=== PATIENT | female | born 1960 ===

== ENCOUNTER 2024-03-31 18:06 | Emergency (ER) | payer SELFPAY ==
[2024-03-31] MEDS: Sodium Chloride 0.9% 10 ML Syringe FLUSH PRN (18:36)
[2024-03-31 18:47] LABS: BASOPHILS PERCENT AUTO 1.6 % (0.0-1.0); EOSINOPHILS PERCENT AUTO 2.8 % (1.0-3.0); LYMPHOCYTES PERCENT AUTO 41.8 % (20.5-50.1); NEUTROPHILS PERCENT AUTO 42.8 % (42.2-75.2); WHITE BLOOD CELL COUNT,WBC 5.7 10^3/uL (5.0-10.0)
[2024-03-31 18:54] LABS: INR 0.9 (0.9-1.2); PROTHROMBIN TIME 9.8 SEC (9.0-12.0)
[2024-03-31 18:55] LABS: B-TYPE NATRIURETIC PEPTIDE,BNP 27 pg/ml (0-100)
[2024-03-31 19:13] LABS: A/G RATIO 1.1; ALANINE AMINOTRANSFERASE,ALT 23 U/L (14-59); ALBUMIN 3.9 g/dL (3.4-5.0); ALKALINE PHOSPHATASE 99 U/L (46-116); ANION GAP 17.3 mEq/L (7-13); ASPARTATE AMNIOTRANSFERASE,AST 28 U/L (15-37); BILIRUBIN TOTAL 0.1 mg/dL (0.2-1.0); BLOOD UREA NITROGEN,BUN 12 mg/dL (7-18); BUN/CREATININE RATIO 21.8 (No establ ref range); CALCIUM 8.9 mg/dL (8.5-10.1); CARBON DIOXIDE,CO2 23 mmol/L (21-32); CHLORIDE,CL 105 mmol/L (98-107); CREATININE 0.55 mg/dL (0.55-1.02); GLUCOSE RANDOM 107 mg/dL (70-99); LACTIC ACID 2.1 mmol/L (0.4-2.0); MAGNESIUM 1.8 mg/dL (1.8-2.4); POTASSIUM,K 3.3 mmol/L (3.5-5.1); PROTEIN TOTAL,TP 7.4 g/dL (6.4-8.2); SODIUM,NA 142 mmol/L (136-145); TSH ULTRASENSITIVE 2.14 uIU/mL (0.36-3.74)
[2024-03-31 19:25] LABS: ETHANOL BLOOD MEDICAL 216 mg/dL (0)
[2024-03-31 19:30] LABS: C-REACTIVE PROTEIN < 0.50 ng/dL (<=0.50); ESTIMATED GFR 103 mL/min (>=60)
[2024-03-31 19:43] LABS: AMPHETAMINES,URINE NEGATIVE (NEGATIVE); BARBITURATES,URINE NEGATIVE (NEGATIVE); BENZODIAZEPINE,URINE NEGATIVE (NEGATIVE); MDMA (ECSTASY), URINE NEGATIVE (NEGATIVE); METHADONE,URINE NEGATIVE (NEGATIVE); METHAMPHETAMINES,URINE NEGATIVE (NEGATIVE); OPIATES,URINE NEGATIVE (NEGATIVE); OXYCODONE,URINE NEGATIVE (NEGATIVE); PHENCYCLIDINE,URINE NEGATIVE (NEGATIVE); TCA,URINE NEGATIVE (NEGATIVE)
[2024-03-31] MEDS: Potassium Chloride 10 MEQ Tab.ER PO ONE (19:48)
[2024-03-31] MEDS: ALPRAZolam 0.5 MG Tab PO ONE (19:48)
[2024-04-01 12:50] LABS: HEMOGLOBIN 12.2 g/dL (12.0-16.0); MEAN CORPUSCULAR HEMOGLOBIN 35.1 pg (27.0-34.0); MEAN CORPUSCULAR HGB CONC 34.6 g/dL (33.0-35.0); MEAN CORPUSCULAR VOLUME 101.4 fL (80-100); RED BLOOD CELL COUNT 3.48 10^6/uL (4.2-5.4)
[2024-04-01 13:14] LABS: HEMATOCRIT 35.3 % (37.0-47.0)
[2024-04-01 13:15] LABS: PLATELET COUNT,PLT 254 10^3/uL (150-450)
== END 2024-03-31 20:05 | disposition home or self-care (01) ==
LOC: DL.ED 18:06
DX: E87.6 Hypokalemia (principal); F41.9 Anxiety disorder, unspecified; F10.920 Alcohol use, unspecified with intoxication, uncomplicated
CPT/HCPCS: 36415; 71045; 80053; 80305; 80307; 83605; 83735; 83880; 84145; 84443; 84484; 85025; 85610; 85730; 86140; 93005; 99285; A9270; 93010; 99284; J3490